=== PATIENT | female | born 1950 | race Caucasian/White ===

== ENCOUNTER 2017-01-01 07:29 | Emergency (ER) | payer MEDICARE, OTHER ==
[~2017-01-01 07:29] MED LIST: ACET500CAP PO; ASAB PO; ASABAYER PO; COREG3 PO; DEPAKOT250 PO; FERROUS SULF325 M1 PO; FOLIC PO; KLONO1 PO; KLONO5 PO; LEVOTHYROXIN25 MCG PO; LEVOTHYROXIN75 MCG PO; LEXAPRO10 PO; LIPITOR80 MG PO; LOP25 PO; NORV10 PO; PLAVIX PO; PROAIR HFA INH; PROVENTSOL INH; PROVHFA PO; REMERON30 MG PO; SAPHRIS10 MG PO; SYMBICORT 80/4.1 INH INH; SYN075 PO; TRICOR145 PO; ZYPREXA15 MG PO
[2017-01-01 08:12] LABS: BASOPHILS 0.9 %; BASOPHILS ABSOLUTE 0.04 10/3/uL (0.0-0.16); EOSINOPHILS 3.8 %; EOSINOPHILS ABSOLUTE 0.16 10/3/uL (0.0-0.53); ER CBC TAT 0 Hrs 10 Mins; HEMATOCRIT 33.2 % (36.0-48.0); IMMATURE GRANULOCYTES 0.2 %; IMMATURE GRANULOCYTES ABSOLUTE 0.01 10/3/uL (0.0-0.11); LYMPHOCYTES 29.2 %; LYMPHOCYTES ABSOLUTE 1.24 10/3/uL (0.67-4.30); MANUAL DIFF NO %; MEAN CORPUS HGB CONC 33.1 g/dL (32.0-36.0); MEAN CORPUSCULAR HEMOGLOB 31.3 pg (26.0-34.0); MEAN CORPUSCULAR VOLUME 94.3 fL (80-100); MEAN PLATELET VOLUME 8.1 fL (9.2-13.0); MONOCYTES 4.2 %; MONOCYTES ABSOLUTE 0.18 10/3/uL (0.21-1.20); NEUTROPHILS 61.7 %; NEUTROPHILS ABSOLUTE 2.61 10/3/uL (2.02-8.40); PLATELET COUNT 285 10/3/uL (150-400); RBC DISTRIBUTION WIDTH 13.3 % (12.0-16.0); RED CELL COUNT 3.52 10/6/uL (4.0-5.6); WHITE BLOOD CELLS 4.2 10/3/uL (4.5-10.5)
[2017-01-01 08:21] LABS: INTERNATIONAL NORMAL RATI 1.1 UNITS (-); PARTIAL THROMBO TIME 24.8 SEC (22.5-37.2); PROTIME (NOT ORD) 13.9 SEC (12.0-14.5)
[2017-01-01 08:31] LABS: CALCIUM, SERUM 9.3 MG/DL (8.5-10.4); CHEST PAIN PROFILE TAT 0 Hrs 29 Mins; CHLORIDE, SERUM 113 MMOL/L (96-112); CO2 (CARBON DIOXIDE) 21 MMOL/L (24-34); GFR AFRICAN AMERICAN 25 ML/MIN (>=60); GFR NON AFRICAN AMERICAN 22 ML/MIN (>=60); GLUCOSE, SERUM 108 MG/DL (60-99); SODIUM, SERUM 144 MMOL/L (135-148); TROPONIN I <0.02 NG/ML (<0.05)
[2017-01-01 08:33] LABS: BUN (BLOOD UREA NITROGEN) 38 MG/DL (6-23)
[2017-01-01 08:34] LABS: ACETAMINOPHEN LEVEL (TYLENOL) < 2.0 MCG/ML (10.0-20.0); ALCOHOL < 10 MG/DL (0)
[2017-01-01 08:34] LABS: INFLUENZA A SCREEN NEGATIVE (NEGATIVE); INFLUENZA B SCREEN NEGATIVE (NEGATIVE)
[2017-01-01 09:14] LABS: ASCORBIC ACID (UR NOT ORDER) NEG (NEG); BILIRUBIN, URINE NEGATIVE (NEG); ER URINALYSIS TAT 0 Hrs 19 Mins; KETONE, URINE NEGATIVE (NEG); LEUKOCYTE ESTERASE(NOT OR TRACE (NEG); NITRITE (URINE) NEG (NEG); WBC (NOT ORDERED) (RFLEX) 3 (0-5)
[2017-01-01 09:46] LABS: AMPHETAMINES (NOT ORD) NEG (NEG); BARBITURATES (NOT ORDERED NEG (NEG); BENZODIAZEPINES (NOT ORD) NEG (NEG); CANNABINOIDS (THC) NEG (NEG); COCAINE (NOT ORDERED) NEG (NEG); OPIATES NEG (NEG); PHENCYCLIDINE(PCP) NEG (NEG); TRICYCLICS NEG (NEG)
[2017-06-15] MEDS ORDERED: PLAVIX PO (20:50)
[2017-06-15] MEDS ORDERED: KEPPRA500 PO (20:50)
[2017-06-15] MEDS ORDERED: LIPITOR40 PO (20:51)
[2017-06-15] MEDS ORDERED: TRICOR145 PO (20:51)
[2017-06-15] MEDS ORDERED: COREG3 PO (20:51)
[2017-06-15] MEDS ORDERED: SYN075 PO ×2 (20:52→20:53)
[2017-06-15] MEDS ORDERED: LITHOBID3 PO (20:54)
[2017-06-15] MEDS ORDERED: ZYPREXA10 MG PO (20:55)
[2017-06-15] MEDS ORDERED: PRIN2.5 PO (20:56)
[2017-06-15] MEDS ORDERED: ATV.5 PO (20:57)
[2017-06-20] MEDS ORDERED: ZYP5 PO (11:53)
[2017-06-20] MEDS ORDERED: ATV.5 PO (11:54)
== END 2017-01-01 16:06 | disposition home or self-care (01) ==
LOC: ER 07:29
PROVIDERS: Emergency Medicine
DX: J44.9 Chronic obstructive pulmonary disease, unspecified (principal); F17.200 Nicotine dependence, unspecified, uncomplicated; I10 Essential (primary) hypertension; F31.9 Bipolar disorder, unspecified; Z88.2 Allergy status to sulfonamides; Z88.1 Allergy status to other antibiotic agents; Z79.82 Long term (current) use of aspirin; Z79.899 Other long term (current) drug therapy
CPT/HCPCS: 70450; 71010; 80048; 80305; 80307; 81001; 83735; 84484; 85025; 85610; 85730; 87804; 93005; 94640; 96374; 99285; J2930

== ENCOUNTER 2017-02-16 13:00 | Emergency (ER) | payer MEDICARE, OTHER ==
[2017-06-15] MEDS ORDERED: KEPPRA500 PO (20:50)
[2017-06-15] MEDS ORDERED: PLAVIX PO (20:50)
[2017-06-15] MEDS ORDERED: LIPITOR40 PO (20:51)
[2017-06-15] MEDS ORDERED: COREG3 PO (20:51)
[2017-06-15] MEDS ORDERED: TRICOR145 PO (20:51)
[2017-06-15] MEDS ORDERED: SYN075 PO ×2 (20:52→20:53)
[2017-06-15] MEDS ORDERED: LITHOBID3 PO (20:54)
[2017-06-15] MEDS ORDERED: ZYPREXA10 MG PO (20:55)
[2017-06-15] MEDS ORDERED: PRIN2.5 PO (20:56)
[2017-06-15] MEDS ORDERED: ATV.5 PO (20:57)
[2017-06-20] MEDS ORDERED: ZYP5 PO (11:53)
[2017-06-20] MEDS ORDERED: ATV.5 PO (11:54)
== END 2017-02-16 13:09 | disposition home or self-care (01) ==
LOC: ER 13:00
DX: H11.32 Conjunctival hemorrhage, left eye (principal); J44.9 Chronic obstructive pulmonary disease, unspecified; I12.9 Hypertensive chronic kidney disease with stage 1 through stage 4 chronic kidney disease, or unspecified chronic kidney disease; N18.9 Chronic kidney disease, unspecified; F31.9 Bipolar disorder, unspecified; F17.200 Nicotine dependence, unspecified, uncomplicated; Z88.2 Allergy status to sulfonamides; Z88.1 Allergy status to other antibiotic agents; Z79.82 Long term (current) use of aspirin; Z79.899 Other long term (current) drug therapy
CPT/HCPCS: 99282